=== PATIENT | male | born 1995 | race Caucasian/White ===

== ENCOUNTER → 2017-10-29 | Outpatient (REF) | payer OTHER ==
[2017-10-29 10:12] LABS: PLATELET COUNT, AUTOMATED 237 K/uL (150-450)
== END ==
LOC: ZZSTITCHES 10:04
PROVIDERS: ATTEND Physician Assistant
DX: R10.12 Left upper quadrant pain (principal); R10.812 Left upper quadrant abdominal tenderness
CPT/HCPCS: 82040; 82247; 82310; 82374; 82435; 82565; 82947; 84075; 84132; 84155; 84295; 84450; 84460; 84520; 85025